=== PATIENT | male | born 1975 | race Caucasian/White ===

== ENCOUNTER 2018-01-30 16:44 | Emergency (ER) | payer OTHER ==
[2018-01-30 17:00] VITALS: BP 134/85; PULSE 73; TEMP 98.4; BMI 24.6
[2018-01-30] MEDS ORDERED: BENZOIN/ALOE VERA/STORAX/TOLU 58 ML BOTTLE ONE (17:34)
[2018-01-30] MEDS ORDERED: CEPHALEXIN MONOHYDRATE 500 MG CAPSULE (UD) PO ONE (17:42)
--- NOTE | 2018-01-30 17:42 | PDOC ---
History of Present Illness - General History Source: Patient Exam Limitations: No Limitations - History of Present Illness Initial Comments: 01/30/18 17:49 The patient is a 42 year old male, with a significant PMH of diabetes presents to the emergency department with laceration of his big toe prior to arrival. Patient reports that he cut his foot on a blade that fell into his boot while he was moving . He reports that he wrapped his foot in an lincoln bandage before coming to the ED. He also reports an onset of numbness in his left big toe but no pain. The patient states that he is able to walk on his foot. He denies any prior cuts to his feet. The patient denies chest pain, shortness of breath, headache and dizziness. Denies fever, chills, nausea, vomit, diarrhea and constipation. Denies dysuria, frequency, urgency and hematuria. 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 He lives at home with his girlfriend and her daughter . Reports that he smokes cigarettes (3 packs a week). PCP: None reported. <Audrey Irvin - Last Filed: 01/30/18 17:49> <Jonas Riddle - Last Filed: 01/30/18 17:54> - General Chief Complaint: Laceration Stated Complaint: LEFT BIG TOE LACERATION Time Seen by Provider: 01/30/18 17:13 Past History <Audrey Irvin - Last Filed: 01/30/18 17:49> - Past Medical History COPD: No Diabetes: Yes (iddm) - Immunization History Immunization Up to Date: Yes - Suicide/Smoking/Psychosocial Hx Smoking Status: Yes Smoking History: Current every day smoker Have you smoked in the past 12 months: Yes Number of Cigarettes Smoked Daily: 10 Information on smoking cessation initiated: Yes 'Breaking Loose' booklet given: 01/30/18 Hx Alcohol Use: No Substance Use Type: None <Jonas Riddle - Last Filed: 01/30/18 17:54> - Past Medical History Allergies/Adverse Reactions: Allergies Allergy/AdvReac Type Severity Reaction Status Date / Time Iodinated Contrast- Oral and Allergy Verified 01/30/18 16:46 IV Dye [Iodinated Contrast Media - IV Dye] shellfish derived Allergy Verified 01/30/18 16:46 Home Medications: Ambulatory Orders Cephalexin Monohydrate [Keflex] 250 mg PO Q8H #15 capsule 01/30/18 Humalog Infusion Pump 01/30/18 Review of Systems - Review of Systems Able to Perform ROS?: Yes Comments:: 01/30/18 17:49 CONSTITUTIONAL: Absent: fever, chills, diaphoresis, generalized weakness, malaise, loss of appetite HEENT: Absent: rhinorrhea, nasal congestion, throat pain, throat swelling, difficulty swallowing, mouth swelling, ear pain, eye pain, visual Changes CARDIOVASCULAR: Absent: chest pain, syncope, palpitations, irregular heart rate, lightheadedness , peripheral edema RESPIRATORY: Absent: cough, shortness of breath, dyspnea with exertion, orthopnea, wheezing, stridor, hemoptysis GASTROINTESTINAL: Absent: abdominal pain, abdominal distension, nausea, vomiting, diarrhea, constipation, melena, hematochezia GENITOURINARY: Absent: dysuria, frequency, urgency, hesitancy, hematuria, flank pain, genital pain MUSCULOSKELETAL: Present (+) Left first toe Laceration Absent: myalgia, arthralgia, joint swelling SKIN: Absent: rash, itching, pallor HEMATOLOGIC/IMMUNOLOGIC: Absent: easy bleeding, easy bruising, lymphadenopathy, frequent infections ENDOCRINE: Absent: unexplained weight gain, unexplained weight loss, heat intolerance, cold intolerance NEUROLOGIC: Absent: headache, focal weakness or paresthesias, dizziness, unsteady gait, seizure, mental status changes, bladder or bowel incontinence PSYCHIATRIC: Absent: anxiety, depression, suicidal or homicidal ideation, hallucinations. <Audrey Irvin - Last Filed: 01/30/18 17:49> *Physical Exam - Vital Signs Last Vital Signs Temp Pulse Resp BP Pulse Ox 98.4 F 73 18 134/85 99 01/30/18 16:45 01/30/18 16:45 01/30/18 16:45 01/30/18 16:45 01/30/18 16:45 <Audrey Irvin - Last Filed: 01/30/18 17:49> - Vital Signs Last Vital Signs Temp Pulse Resp BP Pulse Ox 98.4 F 73 18 134/85 99 01/30/18 16:45 01/30/18 16:45 01/30/18 16:45 01/30/18 16:45 01/30/18 16:45 <Jonas Riddle - Last Filed: 01/30/18 17:54> Medical Decision Making - Medical Decision Making 01/30/18 17:53 Superficial laceration of the distal pulp of the right great toe. Approximately 2 mm in length, flap-like, thin and involving mainly the skin. No nail involvement. No sign of other injury, deformity, or fracture Scrubbed and irrigated well with normal saline. With flap elevated. Bleeding controlled with pressure. Steri-Strip repair. Wound care discussed and follow- up immediately if sign of infection. Antibiotics. Fully ambulatory and in no pain or other distress upon discharge with follow-up as directed <Jonas Riddle - Last Filed: 01/30/18 17:54> *DC/Admit/Observation/Transfer - Attestations Scribe Attestion: 01/30/18 17:50 Documentation prepared by Audrey Irvin, acting as medical attendant for Jonas Pack MD <Audrey Irvin - Last Filed: 01/30/18 17:49> - Discharge Dispostion Admit: No <Jonas Riddle - Last Filed: 01/30/18 17:54> Diagnosis at time of Disposition: Laceration - Discharge Dispostion Disposition: HOME Condition at time of disposition: Improved - Prescriptions Prescriptions: Cephalexin Monohydrate [Keflex] 250 mg PO Q8H #15 capsule - Patient Instructions Printed Discharge Instructions: DI for Laceration Repair Steri-Strips Additional Instructions: Keep absolutely clean and dry. Rest and elevate the leg for 24-48 hours. Change the bandage in 2 days. Redress with antibiotic ointment and Band-Aid. If there is bleeding or any sign of infection, see primary physician or return to the ER for recheck
[2018-01-30] MEDS ORDERED: CEPHALEXIN MONOHYDRATE 500 MG CAPSULE (UD) ONE (17:56)
== END 2018-01-30 18:05 | disposition home or self-care (01) ==
LOC: FER 16:44
PROC: 0HQNXZZ Repair Left Foot Skin, External Approach (ICD-10-PCS; principal; 2018-01-30)
DX: S91.112A Laceration without foreign body of left great toe without damage to nail, initial encounter (principal); W45.8XXA Other foreign body or object entering through skin, initial encounter; Y93.89 Activity, other specified; Y92.9 Unspecified place or not applicable
CPT/HCPCS: 99284-25

== ENCOUNTER 2018-08-28 16:00 | Emergency (ER) | payer OTHER ==
[2018-08-28 16:04] VITALS: BP 140/69; PULSE 82; TEMP 98.3; BMI 24.6
--- NOTE | 2018-08-28 16:12 | PDOC ---
History of Present Illness - General Chief Complaint: Laceration Stated Complaint: FINGER LAC Time Seen by Provider: 08/28/18 16:09 - History of Present Illness Initial Comments: 08/28/18 17:03 The patient is a 43 year old male with a history of IDDM who presents for evaluation of a laceration. The patient reports that he was using a surface grinder tender and sustained a laceration to his right first digit 2 hours prior to presentation to the ED. He denies any other injuries and denies any numbness, tingling, weakness or decreased ROM to the right first digit. He states that he had a tetanus shot 1 year ago. He otherwise denies fevers, chills, SOB, chest, pain, nausea, vomiting, abdominal pain, or changes with urination or bowel movements. Past History - Past Medical History Allergies/Adverse Reactions: Allergies Allergy/AdvReac Type Severity Reaction Status Date / Time Iodinated Contrast- Oral and Allergy Verified 08/28/18 16:01 IV Dye [Iodinated Contrast Media - IV Dye] shellfish derived Allergy Verified 08/28/18 16:01 Home Medications: Ambulatory Orders Humalog Infusion Pump 01/30/18 Cephalexin Monohydrate [Keflex -] 500 mg PO BID #10 capsule 08/28/18 COPD: No Diabetes: Yes (iddm) - Immunization History Immunization Up to Date: Yes - Suicide/Smoking/Psychosocial Hx Smoking Status: Yes Smoking History: Current every day smoker Have you smoked in the past 12 months: Yes Number of Cigarettes Smoked Daily: 10 Information on smoking cessation initiated: Yes 'Breaking Loose' booklet given: 08/28/18 Hx Alcohol Use: No Drug/Substance Use Hx: No Substance Use Type: None Review of Systems - Review of Systems Comments:: 08/28/18 17:06 Constitutional: No fevers, chills, fatigue, malaise HEENT: No Rhinorrhea, nasal congestion, visual changes Cardiovascular: No chest pain, syncope, palpitations, lightheadedness Respiratory: No Cough, SOB, Hemoptysis, Gastrointestinal: No Abdominal pain, Nausea, Vomiting, Constipation, Diarrhea, Melena Genitourinary: No Dysuria, Frequency, Urgency, Hesitancy, Hematuria, Flank pain Musculoskeletal: Right first digit laceration. No Myalgia, arthralgia Skin: No rashes, itching, bruising, pallor Neurologic: No Headache, Dizziness, Numbness, Weakness, or Tingling Psychiatric: No Hallucinations. No SI or HI *Physical Exam - Vital Signs Last Vital Signs Temp Pulse Resp BP Pulse Ox 98.3 F 82 19 140/69 99 08/28/18 16:01 08/28/18 16:01 08/28/18 16:01 08/28/18 16:01 08/28/18 16:01 - Physical Exam Comments: 08/28/18 17:07 General Appearance: Nourished. No Apparent Distress HEENT: No Pharyngeal Erythema, Tonsillar Exudate, Tonsillar Erythema Neck: No Cervical Lymphadenopathy Respiratory/Chest: Lungs Clear, Normal Breath Sounds. No Crackles, Rales, Rhonchi, Wheezing Cardiovascular: Regular Rhythm, Regular Rate. No Murmur, Gallops, Rubs Gastrointestinal/Abdominal: Normal Bowel Sounds, Soft. No Guarding, Rebound, Tenderness Musculoskeletal: No CVA Tenderness Extremity: small 0.5cm laceration to the distal aspect of the first digit. Normal Capillary Refill Integumentary: Normal Color, Dry, Warm Neurologic: Fully Oriented, Alert, Normal Mood/Affect, Normal Response, Procedures - Laceration/Wound Repair Right Distal 1st digit Wound Length: to 2.5 cm Wound Explored: clean, no foreign body present Wound's Depth, Shape: superficial, flap Irrigated w/ Saline: Yes Betadine Prep: Yes Wound Repaired With: Dermabond Layer Closure: Yes Sterile Dressing Applied: Yes Medical Decision Making - Medical Decision Making 08/28/18 17:12 The patient is a 43 year old male with a history of IDDM who presents for evaluation of a laceration. The patient's laceration was repaired with dermabond. Given the patient's history of DM, we will treat the patient with a course of keflex for prophylaxis. The patient does not require and updated tetanus at this time. We discussed proper wound care instructions with the patient as well as the plan and return precautions and the patient voiced understanding and is agreeable with the plan. *DC/Admit/Observation/Transfer Diagnosis at time of Disposition: Laceration - Discharge Dispostion Disposition: HOME Condition at time of disposition: Stable - Prescriptions Prescriptions: Cephalexin Monohydrate [Keflex -] 500 mg PO BID #10 capsule - Referrals - Patient Instructions Printed Discharge Instructions: DI for Laceration Repair With Dermabond Additional Instructions: Please return to the ER if you experience concerning or worsening symptoms including worsening fevers, redness, pain, or pus drainage. Please keep the wound clean and dry for 24 hours after which you may run water lightly over the wound. We have sent a prescription to your pharmacy for antibiotics that you should take as directed. Please call to schedule a follow up appointment with your primary care provider within 2-3 days to discuss your ER visit and further management of your symptoms. - Post Discharge Activity
--- NOTE | 2018-08-28 16:31 | PDOC ---
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 dT utd as of last year, but presents 2/2 recurring skin infections following lacerations and need for abx. no motor/sensory deficit, no other injury. - Physicial Exam PE: 08/28/18 16:30 Vital signs stable 7 mm curvilinear superficial laceration at the distal tip of the right thumb, does not involve the nailbed, no deep tissue exposure or involvement, full flexion and extension of the interphalangeal joint and MCP. No active bleeding, sensory intact. - Medical Decision Making 08/28/18 16:30 43-year-old male with very superficial right thumb laceration, no deep tissue exposure or injury, neurovascularly intact. No indication for imaging Tetanus is up-to-date Dermabond after cleaning prophylactic abx given history, understands return criteria
== END 2018-08-28 16:35 | disposition home or self-care (01) ==
LOC: FER 16:00
PROC: 0HQFXZZ Repair Right Hand Skin, External Approach (ICD-10-PCS; principal; 2018-08-28)
DX: S61.011A Laceration without foreign body of right thumb without damage to nail, initial encounter (principal); W45.8XXA Other foreign body or object entering through skin, initial encounter; Y93.G1 Activity, food preparation and clean up; Y92.9 Unspecified place or not applicable; F17.210 Nicotine dependence, cigarettes, uncomplicated; E11.9 Type 2 diabetes mellitus without complications
CPT/HCPCS: 99282-25

== ENCOUNTER 2022-03-04 13:46 | Emergency (ER) | payer OTHER ==
[2022-03-04 14:10] VITALS: BMI 24.9
[2022-03-04] MEDS ORDERED: SODIUM CHLORIDE 1,000 ML IV STA (14:11)
[2022-03-04] MEDS ORDERED: SODIUM CHLORIDE 0.9% 500 ML INFUS.BAG IV ONE (14:14)
[2022-03-04 14:52] LABS: BASO % 1.1 % (0-2.0); HEMATOCRIT 41.7 % (35.4-49); HEMOGLOBIN 14.2 GM/dL (11.7-16.9); LYMPH % 10.7 % (8-40); MCH 32.3 pg (25.7-33.7); MCHC 34.2 g/dl (32.0-35.9); MEAN CELL VOLUME 94.4 fl (80-96); MEAN PLT VOLUME 7.8 fl (7.5-11.1); MONO % 5.7 % (3.8-10.2); NEUT % 81.5 % (42.8-82.8); PLATELET COUNT 251 10^3/uL (134-434); RBC 4.41 M/mm3 (4.00-5.60); RDW 12.6 % (11.9-15.9); WHITE BLOOD COUNT 9.2 K/mm3 (4.0-10.0)
[2022-03-04 14:55] LABS: VENOUS BASE EXCESS -0.3 mmol/L (-2-2); VENOUS O2 SATURATION 71.2 % (70-80); VENOUS PCO2 52.4 mmHg (38-52); VENOUS PH 7.324 (7.310-7.410)
[2022-03-04 15:21] LABS: PHOSPHOROUS 1.8 mg/dL (2.5-4.9)
[2022-03-04 15:23] LABS: ALBUMIN 3.4 g/dl (3.4-5.0); BLOOD UREA NITROGEN 9.2 mg/dL (7-18)
[2022-03-04 15:26] LABS: CREATININE 1.1 mg/dL (0.55-1.3)
[2022-03-04 15:27] LABS: TOT PROT 6.4 g/dl (6.4-8.2)
[2022-03-04 15:28] LABS: BILIRUBIN,TOTAL 0.6 mg/dL (0.2-1)
[2022-03-04 15:53] LABS: PH,URINE 8.5 (5.0-8.0); URINE APPEARANCE CLEAR; URINE BILIRUBIN NEGATIVE (NEGATIVE); URINE COLOR YELLOW; URINE GLUCOSE (UA) 3+ (NEGATIVE); URINE KETONE NEGATIVE (NEGATIVE); URINE LEUK ESTERASE NEGATIVE (NEGATIVE); URINE NITRITE NEGATIVE (NEGATIVE); URINE PROTEIN NEGATIVE (NEGATIVE); URINE UROBILINOGEN 0.2 mg/dL (0.2-1.0)
[2022-03-04] MEDS ORDERED: NAPH,MB-DB/K PH,MBDB POWDER PACKET PO ONE (16:10)
[2022-03-04] MEDS ORDERED: NAPH,MB-DB/K PH,MBDB POWDER PACKET ONE (16:24)
[2022-03-04 16:37] VITALS: BP 105/63; PULSE 54; TEMP 98
== END 2022-03-04 16:35 | disposition home or self-care (01) ==
LOC: JER 13:46
PROC: 3E0337Z Introduction of Electrolytic and Water Balance Substance into Peripheral Vein, Percutaneous Approach (ICD-10-PCS; principal; 2022-03-04)
DX: E11.649 Type 2 diabetes mellitus with hypoglycemia without coma (principal)
CPT/HCPCS: 36415; 71046-TC-FY; 80053; 81003; 82010; 82803; 82962; 83690; 83735; 84100; 85025; 93005; 93010; 99285-25

== ENCOUNTER 2022-07-14 00:07 | Emergency (ER) | payer OTHER ==
[2022-07-14 00:12] VITALS: BP 149/85; PULSE 58; RESP 18; TEMP 98; BMI 24.9
[2022-07-14] MEDS ORDERED: INSULIN REGULAR HUMAN 100 UNITS/ML *VIAL SQ ONE (00:21)
[2022-07-14] MEDS ORDERED: INSULIN (NOVOLOG) ASPART 100 UNITS/ML 10ML VIAL ONE (00:24)
== END 2022-07-14 00:58 | disposition home or self-care (01) ==
LOC: FER 00:07
PROC: 3E023GC Introduction of Other Therapeutic Substance into Muscle, Percutaneous Approach (ICD-10-PCS; principal; 2022-07-14)
DX: E11.65 Type 2 diabetes mellitus with hyperglycemia (principal)
CPT/HCPCS: 82962; 99284-25

== ENCOUNTER 2022-09-01 13:19 | Emergency (ER) | payer OTHER ==
[2022-09-01 13:33] VITALS: BP 133/68; PULSE 93; RESP 18; TEMP 98.9; BMI 25.8
== END 2022-09-01 16:54 | disposition left against medical advice (07) ==
LOC: JER 13:19
DX: R07.9 Chest pain, unspecified (principal)
CPT/HCPCS: 82962; 93005; 93010; 99283-25

== ENCOUNTER → 2023-05-23 | Emergency (ER) | payer OTHER ==
[~2023-05-23] MED LIST: ACETAMINOPHEN INJECTION 100 ML IVPB ONE; DEXTROSE 50%-WATER 25 GM/50 ML DISP.SYRIN ONE; EPINEPHrine 1:10,000 (P-F SYR) 1 MG/10 ML DISP.SYRIN ONE; FAMOTIDINE 20 MG/50 ML IVPB 20 MG/50 ML MG IVPB ONE; LACTATED RINGERS SOLUTION 1000 ML INFUS.BAG IV ONE; MAGNESIUM HYDROX 2400MG/30ML ORAL SUSPENSION 30 ML CUP ONE; ONDANSETRON 4 MG/2 ML VIAL IVPUSH ONE; ONDANSETRON 4 MG/2 ML VIAL ONE
[2023-05-23 11:02] VITALS: BP 114/73; PULSE 97; RESP 16; TEMP 98.7; BMI 25.4
== END | disposition left against medical advice (07) ==
LOC: JER 10:51
PROC: 3E033GC Introduction of Other Therapeutic Substance into Peripheral Vein, Percutaneous Approach (ICD-10-PCS; principal; 2023-05-23)
PROC: 3E033GC Introduction of Other Therapeutic Substance into Peripheral Vein, Percutaneous Approach (ICD-10-PCS; 2023-05-23)
PROC: 3E033GC Introduction of Other Therapeutic Substance into Peripheral Vein, Percutaneous Approach (ICD-10-PCS; 2023-05-23)
DX: R11.2 Nausea with vomiting, unspecified (principal); R19.7 Diarrhea, unspecified; E10.9 Type 1 diabetes mellitus without complications
CPT/HCPCS: 82962; 99284-25

== ENCOUNTER 2023-05-25 15:17 | Emergency (ER) | payer OTHER ==
[2023-05-25 15:22] VITALS: BP 157/95; PULSE 72; RESP 21; TEMP 98.7; BMI 26.7
[2023-05-25] MEDS ORDERED: ONDANSETRON 4 MG/2 ML VIAL IVPUSH ONE (16:13)
[2023-05-25] MEDS ORDERED: ACETAMINOPHEN 1000 MG/100 ML BAG IVPB ONE (16:13)
[2023-05-25] MEDS ORDERED: DEXTROSE 50%-WATER - 25 GM/50 ML VIAL IVPUSH ONE (16:29)
[2023-05-25] MEDS ORDERED: LACTATED RINGERS SOLUTION 1000 ML INFUS.BAG IV ONE (16:37)
[2023-05-25 16:38] LABS: BASO % 0.2 % (0-2.0); EOS % 0.3 % (0-4.5); HEMATOCRIT 43.4 % (35.4-49); HEMOGLOBIN 14.9 GM/dL (11.7-16.9); LYMPH % 14.2 % (8-40); MCH 31.3 pg (25.7-33.7); MCHC 34.5 g/dl (32.0-35.9); MEAN CELL VOLUME 90.9 fl (80-96); MEAN PLT VOLUME 8.1 fl (7.5-11.1); MONO % 6.7 % (3.8-10.2); NEUT % 78.6 % (42.8-82.8); PLATELET COUNT 254 10^3/uL (134-434); RBC 4.77 M/mm3 (4.00-5.60); WHITE BLOOD COUNT 8.9 K/mm3 (4.0-10.0)
[2023-05-25 17:00] LABS: CHLORIDE 104 mmol/L (98-107); POTASSIUM 3.9 mmol/L (3.5-5.1); SODIUM 141 mmol/L (136-145)
[2023-05-25 17:03] LABS: ALBUMIN 3.7 g/dl (3.4-5.0); CALCIUM 9.7 mg/dL (8.5-10.1)
[2023-05-25 17:04] LABS: ANION GAP 7 MMOL/L (8-16); BLOOD UREA NITROGEN 9.9 mg/dL (7-18); CO2 31 mmol/L (21-32); LIPASE 27 U/L (73-393)
[2023-05-25 17:06] LABS: CREATININE 1.1 mg/dL (0.55-1.3); SGPT/ALT 21 U/L (13-61)
[2023-05-25 17:07] LABS: SGOT/AST 14 U/L (15-37)
[2023-05-25 17:08] LABS: TOT PROT 7.5 g/dl (6.4-8.2)
[2023-05-25 17:09] LABS: ALK PHOS 97 U/L (45-117)
[2023-05-25 17:21] LABS: GLUCOSE,RANDOM 45 mg/dL (74-106)
[2023-05-25] MEDS ORDERED: FAMOTIDINE 20 MG/50 ML IVPB 20 MG/50 ML MG IVPB ONE (17:28)
[2023-05-25] MEDS ORDERED: MAG HYDROX/AL HYDROX/SIMETH 30 ML UNIT-DOSE CUP PO ONE (17:28)
[2023-05-25] MEDS ORDERED: IBUPROFEN 800 MG/8 ML IJ IVPB PRN (19:35)
[2023-05-25] MEDS ORDERED: ACETAMINOPHEN 1000 MG/100 ML BAG IVPB PRN (19:35)
[2023-05-25] MEDS ORDERED: METOCLOPRAMIDE HCL INJECTION 10 MG/2 ML VIAL IVPUSH PRN (19:35)
[2023-05-25] MEDS ORDERED: SODIUM CHLORIDE 1,000 ML IV SCH (19:45)
[2023-05-25] MEDS ORDERED: PANTOPRAZOLE SODIUM 40 MG VIAL IVPUSH SCH (19:45)
[2023-05-25] MEDS ORDERED: INSULIN SLIDING SCALE (NOVOLOG) 1 VIAL SQ SCH (22:00)
== END 2023-05-25 20:04 | disposition home or self-care (01) ==
LOC: JER 15:17
PROC: 3E033GC Introduction of Other Therapeutic Substance into Peripheral Vein, Percutaneous Approach (ICD-10-PCS; principal; 2023-05-25)
PROC: 3E033GC Introduction of Other Therapeutic Substance into Peripheral Vein, Percutaneous Approach (ICD-10-PCS; 2023-05-25)
PROC: 3E033GC Introduction of Other Therapeutic Substance into Peripheral Vein, Percutaneous Approach (ICD-10-PCS; 2023-05-25)
PROC: 3E033NZ Introduction of Analgesics, Hypnotics, Sedatives into Peripheral Vein, Percutaneous Approach (ICD-10-PCS; 2023-05-25)
DX: R11.2 Nausea with vomiting, unspecified (principal); R10.9 Unspecified abdominal pain
CPT/HCPCS: 36415; 71045-TC-FY; 80053; 82962; 83690; 84484; 85025; 93005; 93010; 99285-25

== ENCOUNTER 2025-05-01 15:51 | Emergency (ER) | payer BC ==
[2025-05-01 16:08] VITALS: RESP 19; TEMP 97.5; BMI 24.6
[2025-05-01] MEDS: SODIUM CHLORIDE 1,000 ML IV STA (16:10)
[2025-05-01 16:42] LABS: ABSOLUTE IMMATURE GRANULOCYTES 0.03 x10^3/uL (0.0-0.031); BASOPHILS # 0.03 x10^3/uL (0.01-0.08); EOSINOPHIL % 0.4 % (0.8-7.0); EOSINOPHILS # 0.05 x10^3/uL (0.04-0.54); MCHC 34.3 g/dl (32.3-36.5); MEAN CELL VOLUME 93.0 fl (79.0-92.2); MEAN PLT VOLUME 10.0 fl (9.4-12.4); MONOCYTE # 0.58 x10^3/uL (0.30-0.82); MONOCYTE % 5.2 % (5.3-12.2); RDW 11.7 % (12.1-15.9)
[2025-05-01] MEDS: LACTATED RINGERS SOLUTION 1000 ML INFUS.BAG IV ONE (16:42)
[2025-05-01] MEDS ORDERED: ONDANSETRON 4 MG/2 ML VIAL ONE (16:43)
[2025-05-01 16:55] LABS: INR 1.07 (0.83-1.09); PROTHROMBIN TIME (PATIENT) 11.9 SEC (9.7-13.0)
[2025-05-01] MEDS: ONDANSETRON 4 MG/2 ML VIAL IVPUSH ONE (16:55)
[2025-05-01 16:57] LABS: ACTIVATED PTT 24.8 SECONDS (25.2-36.5)
[2025-05-01 17:08] LABS: ALK PHOS 95.0 U/L (45-117); CO2 26.0 mmol/L (21-32); CREATININE 1.3 mg/dl (0.6-1.3); SGOT/AST 16.0 U/L (15-37); SGPT/ALT 15.0 U/L (7-52); TOT PROT 7.4 g/dl (6.4-8.2)
[2025-05-01 17:23] LABS: GLUCOSE,RANDOM 553.0 mg/dl (74-106)
[2025-05-01] MEDS ORDERED: INSULIN REGULAR HUMAN 100 UNITS/ML *VIAL ONE (17:40)
[2025-05-01] MEDS: INSULIN REGULAR 100 UNITS in SODIUM CHLORIDE 99 ML IVPB SCH (17:49)
[2025-05-01 18:23] LABS: BG HCT 48.0 % (35.4-49); VENOUS BASE EXCESS -3.9 mmol/L (-2-2); VENOUS O2 SATURATION 75.8 % (70-80); VENOUS PCO2 39.7 mmHg (38-52); VENOUS PH 7.348 (7.310-7.410)
[2025-05-01 18:26] VITALS: BP 120/78; PULSE 65
== END 2025-05-01 20:24 | disposition left against medical advice (07) ==
LOC: FER 15:51
PROC: 3E033GC Introduction of Other Therapeutic Substance into Peripheral Vein, Percutaneous Approach (ICD-10-PCS; principal; 2025-05-01)
PROC: 3E0337Z Introduction of Electrolytic and Water Balance Substance into Peripheral Vein, Percutaneous Approach (ICD-10-PCS; 2025-05-01)
DX: E11.65 Type 2 diabetes mellitus with hyperglycemia (principal); R11.2 Nausea with vomiting, unspecified; R53.83 Other fatigue; R35.89 Other polyuria
CPT/HCPCS: 36415; 80053; 81003; 82010; 82803; 82962; 83036; 83605; 83735; 84100; 84484; 85025; 85610; 85730; 86850; 86900; 86901; 87086; 93005; 93010; 99284-25